=== PATIENT | female | born 1970 | race Caucasian/White ===

== ENCOUNTER 2025-01-10 15:35 | Outpatient (OUT) | payer BC, SELFPAY ==
--- NOTE | 2025-01-10 15:37 | MM_ITS ---
Patient Name: BERNICE VINCENT MR#: [id number] : 1970 Exam Date: 01/10/2025 Ordering Doctor: DR MARLA JAIN M.D. RADIOLOGY REPORT PROCEDURE: MM TOMOSYNTHESIS SCREENING BI COMPARISON: MG MAMM SCREEN MAURICE W CAD, 07/04/2020. MG MAMM SCREEN MAURICE W CAD, 02/03/2019. MG MAMM SCREEN MAURICE W CAD, 01/20/2018. MG MAMM MAURICE SCRN W CAD DIG, 10/06/2013. INDICATIONS: Screening mammogram Calculator Name [facility] Breast Cancer Risk Assessment Tool 5 Year Breast Cancer Risk 1.20% Lifetime Breast Cancer Risk 9.20% Personal Breast Cancer No Personal Ovarian Cancer No Treatments None Family Cancers None LOCATION: [facility] BREAST COMPOSITION: The breasts are heterogeneously dense,which may obscure small masses. FINDINGS: RIGHT BREAST: No significant suspicious finding. Benign calcifications. Biopsy marking clip. LEFT BREAST: No significant suspicious finding. Benign calcifications. Biopsy marking clip. DIAGNOSTIC CATEGORY 1--NEGATIVE. RECOMMENDATIONS: ROUTINE MAMMOGRAM AND CLINICAL EVALUATION IN 12 MONTHS. PLEASE NOTE: A NORMAL MAMMOGRAM DOES NOT EXCLUDE THE POSSIBILITY OF BREAST CANCER. A CLINICALLY SUSPICIOUS PALPABLE LUMP SHOULD BE BIOPSIED. Dictated by: Abelino Holt DO on 01/10/2025 at 16:33 Approved by: Abelino Holt DO on 01/10/2025 at 16:37
== END 2025-01-10 15:36 | disposition home or self-care (01) ==
LOC: MAMMO 15:35
PROVIDERS: PCP Family Medicine; Visit Provider Family Medicine
DX: Z12.31 Encounter for screening mammogram for malignant neoplasm of breast (principal)
CPT/HCPCS: 77063; 77067